=== PATIENT | male | born 1980 | race Caucasian/White ===

== ENCOUNTER → 2021-06-08 | Outpatient (CLI) | payer OTHER ==
[~2021-06-08] MED LIST: IOHEXOL 240 MG/ML 50ML VIAL. ONE; IOHEXOL 300 MG/ML 75 ML VIAL. IV ONE
--- NOTE | 2021-06-08 11:28 | RAD ---
EXAM: Abdomen and pelvis CT with intravenous contrast. HISTORY: Constipation. TECHNIQUE: Computed tomographic images of the abdomen and pelvis were obtained following the administ ration of intravenous contrast. Multiplanar reformatting was performed. *One or more of the following individualized dose reduction techniques were utilized for this examina tion: 1. Automated exposure control. 2. Adjustment of the mA and/or kV according to patient size. 3. Use of iterative reconstruction technique. COMPARISON: None. FINDINGS: Evaluation of the lower thorax is unremarkable. There is a 1.3 cm ill-defined hypodense les ion within the posterior right hepatic lobe. The gallbladder, pancreas and adrenal glands are unremar kable. There is a splenule adjacent to an otherwise unremarkable spleen. The kidneys are unremarkable . There is no appendicitis. There is no bowel obstruction. There is moderate colonic stool. The bladder is unremarkable. There is stranding within the bilateral inguinal canals secondary to prior inguinal hernia repair. The aorta is normal in caliber. There is no lymphadenopathy. There is no acute or celestino picious osseous finding. There are degenerative changes involving the lower lumbar spine. IMPRESSION: 1. Moderate colonic stool. 2. 1.3 cm ill-defined hypodense lesion within the right hepatic lobe. In the absence of known maligna ncy, this may be a cyst or hemangioma. If this is not visible sonographically, MRI may be useful for characterization. 3. Findings consistent with bilateral inguinal hernia repair. Electronically signed by: Lillie Marie MD (06/08/2021 11:26 AM) [id number]
== END ==
LOC: CT 08:53
PROVIDERS: ATTEND Family Medicine Sports Medicine
DX: K40.20 Bilateral inguinal hernia, without obstruction or gangrene, not specified as recurrent (principal); R10.9 Unspecified abdominal pain
CPT/HCPCS: 74177; Q9967